=== PATIENT | male | born 1990 | race Caucasian/White ===

== ENCOUNTER 2021-08-13 14:36 | Emergency (ER) | payer OTHER ==
[2021-08-13] MEDS ORDERED: Doxycycline Monohydrate 100 MG Cap PO ONE (14:37)
[2021-08-13] MEDS ORDERED: Doxycycline Monohydrate 100 MG Cap ONE (15:47)
== END 2021-08-13 15:55 | disposition home or self-care (01) ==
LOC: DL.ED 14:36
DX: L02.416 Cutaneous abscess of left lower limb (principal)
CPT/HCPCS: 99281; A9270